=== PATIENT | male | born 1950 | race Caucasian/White ===

== ENCOUNTER → 2022-10-21 | Outpatient (CLI) | payer OTHER | END | disposition home or self-care (01) | LOC: RESCLI 11:41 | PROVIDERS: ATTEND Student in an Organized Health Care Education/Training Program | DX: I10 Essential (primary) hypertension (principal); E78.5 Hyperlipidemia, unspecified; E11.9 Type 2 diabetes mellitus without complications; N40.0 Benign prostatic hyperplasia without lower urinary tract symptoms; M54.30 Sciatica, unspecified side; F32.9 Major depressive disorder, single episode, unspecified; M48.061 Spinal stenosis, lumbar region without neurogenic claudication; E63.9 Nutritional deficiency, unspecified; Z79.899 Other long term (current) drug therapy ==

== ENCOUNTER → 2023-11-23 | Outpatient (CLI) | payer MEDICARE, OTHER | END | disposition home or self-care (01) | LOC: RESCLI 01:30 | PROVIDERS: ATTEND Internal Medicine | DX: I10 Essential (primary) hypertension (principal); E78.5 Hyperlipidemia, unspecified; E11.9 Type 2 diabetes mellitus without complications; N40.0 Benign prostatic hyperplasia without lower urinary tract symptoms; M54.30 Sciatica, unspecified side; E63.9 Nutritional deficiency, unspecified; Z79.899 Other long term (current) drug therapy ==